=== PATIENT | male | born 1955 | race Caucasian/White ===

== ENCOUNTER 2022-04-27 11:13 | Inpatient (IN) ==
--- NOTE | 2022-04-27 12:23 | Emergency Department Note ---
HPI General Chief complaint: Altered Mental Status Stated complaint: altered LOC, weakness Time Seen by Provider: 04/27/22 12:15 Mode of arrival: wheelchair Limitations: no limitations History of Present Illness HPI Narrative: Narrative: 67 yo M w/ h/o widely metastatic bladder CA who is on comfort care measures presents to the ED w/ inability to urinate. Per his sister who is his medical POA, he has not been able to urinate today and has become increasingly uncomfortable. They did give his usual hydrocodone and toradol, and he additionally had some ativan, however Sx persisted. At that point they realized he had not urinated and became concerned for urinary obstruction and presented here. He arrives w/ a living will stating that he is comfort care measures only and does not want any measures to prolong his life. Family has made efforts to get him in to hospice and our bilingual patient support caseworker has set up a referral but he will not be seen for around one week. Pt is new to the area- he was living in [place] but his friends were unable to care for him, so he came here for his family to care for him in what he and the family understand are his last days. At this point however, the family feel that they are not able to care for him at home properly as they have significant difficulty mobilizing him. Related Data Previous Rx's Medication Instructions Recorded fentanyl 75 mcg/hr transdermal 1 patch TRANSDERMAL Q72H #5 ea 04/24/22 patch hydrocodone 7.5 mg-acetaminophen 15 ml PO Q6H PRN #118 ml 04/24/22 325 mg/15 mL oral solution levothyroxine 75 mcg capsule 75 mcg PO QDAY #30 cap 04/24/22 lorazepam 0.5 mg tablet (Ativan) 0.5 mg PO QHS PRN #10 tab 04/24/22 prochlorperazine maleate 10 mg 10 mg PO Q8H PRN #10 tab 04/24/22 tablet ketorolac 10 mg tablet 10 mg PO TID PRN 5 Days #15 tab 04/25/22 Allergies Allergy/AdvReac Type Severity Reaction Status Date / Time No Known Drug Allergies Allergy Verified 04/27/22 11:18 Review of Systems ROS ROS Narrative: Narrative: All systems ED: reviewed and negative except as stated. PFSH Narrative Patient History Narrative: Narrative: Medical/Surgical/Family History All Active Problems (Updated 04/27/22 @ 13:26 by Cholo Loaiza MD) Weakness (Acute) Pain of metastatic malignancy (Acute) Acute urinary retention (Acute) Hypotension (Acute) Social History Smoking Status: Former smoker Exam Narrative Narrative: Narrative: General Limitations: no limitations General appearance: Present other (drowsy but occasionally in pain, cachectic) Head Head: Present atraumatic and normocephalic Eye Eye: Present normal appearance ENT ENT: Present normal oropharynx and mucous membranes dry Chest Chest: Present normal inspection and symmetric chest wall rise Respiratory Respiratory: Present normal lung sounds bilaterally; Absent respiratory distress Cardiovascular Cardiovascular: Present regular rate, normal rhythm, +S1, +S2 and other (2+ B/L radial pulses); Absent systolic murmur or diastolic murmur Adbominal Abdominal: Present soft, tenderness (suprapubic), normal bowel sounds and other (distended bladder on bedside US); Absent distention, guarding, rebound or rigidity Extremities Extremities: Absent pedal edema Neurological Neurological: Present alert Psychiatric Psychiatric: Present normal affect Skin Skin: Present warm (WNL) and dry Course Vital Signs Vital signs: Vital Signs Temperature 96.5 F L 04/27/22 11:14 Pulse Rate 115 H 04/27/22 11:14 Respiratory Rate 16 04/27/22 11:14 Blood Pressure 64/48 04/27/22 11:14 Pulse Oximetry (%) 93 04/27/22 11:14 Temperature 96.5 F L 04/27/22 11:14 Pulse Rate 117 H 04/27/22 11:27 Respiratory Rate 8 L 04/27/22 12:50 Blood Pressure 61/47 04/27/22 12:49 Pulse Oximetry (%) 95 04/27/22 11:27 [facility] MDM Narrative Medical decision making narrative: 67 yo M w/ h/o widely metastatic bladder CA who is on comfort care measures presents to the ED w/ inability to urinate and is found to be significantly hypotensive. DDX - hypovolemic shock, obstructive shock, septic shock, metabolic/electrolyte d/o, dehydration, neoplastic process Pt presented awake but drowsy, w/ tachycardia and hypotension. I d/w his sister at bedside and reviewed his living will. In accordance w/ his wishes and w/ sister in agreement w/ did not proceed w/ any interventions to address his vital sign instability, or investigations to determine the etiology. The family understood that with his current vitals he may not survive the night. I did find that he had clear evidence of bladder outlet obstruction, and this was relieved w/ placement of a coudet catheter. He was then much more comfortable and had good output. He was seen by case management in the ED. Both the family, case management, and myself all felt that admission for comfort care would be ideal at this time as his needs are more than family can provide. The pt was then accepted by the hospitalist for ongoing care. Discharge Plan Patient/Caregiver Discharge Instructions Pt seen by LABORATORY COORDINATOR/PA only: No Clinical Impression: Acute urinary retention, Pain of metastatic malignancy, Hypotension Patient Disposition: Xfer As Inpt ([facility]) Condition: Serious Follow up with: Thanh Hill PA-C [Primary Care Provider] - Prescriptions: No Action fentanyl 75 mcg/hr patch 72 hour 1 patch transdermal Q72H Qty: 5 0RF hydrocodone-acetaminophen 7.5-325 mg/15 mL solution 15 ml PO Q6H PRN (Reason: pain) Qty: 118 0RF levothyroxine 75 mcg capsule 75 mcg PO QDAY Qty: 30 0RF prochlorperazine maleate 10 mg tablet 10 mg PO Q8H PRN (Reason: nausea and vomiting) Qty: 10 0RF lorazepam [Ativan] 0.5 mg tablet 0.5 mg PO QHS PRN (Reason: sleep) Qty: 10 0RF ketorolac 10 mg tablet 10 mg PO TID PRN (Reason: pain) 5 Days Qty: 15 0RF
[2022-04-27] MEDS ORDERED: PROCHLORPERAZINE 10 MG/2 ML VIAL IV PRN (13:08)
[2022-04-27] MEDS ORDERED: PROMETHAZINE 25 MG/ML VIAL IV PRN (13:08)
[2022-04-27] MEDS ORDERED: diphenhydrAMINE 50 MG/ML VIAL IV PRN (13:08)
[2022-04-27] MEDS ORDERED: ONDANSETRON 4 MG/2 ML VIAL IV PRN (13:08)
[2022-04-27] MEDS ORDERED: HYDROmorphone 1 MG/ML SYRINGE IV PRN (13:08)
[2022-04-27] MEDS ORDERED: morphine 20 MG/ML ORAL.CONC SL PRN (13:08)
[2022-04-27] MEDS ORDERED: ZOLPIDEM 5 MG TABLET PO PRN (13:08)
[2022-04-27] MEDS ORDERED: HYDROcodone/APAP 5/325MG TABLET PO PRN (13:08)
[2022-04-27] MEDS ORDERED: morphine 4 MG/ML VIAL IV PRN (13:08)
[2022-04-27] MEDS ORDERED: traZODone HCL 50 MG TABLET PO PRN (13:08)
[2022-04-27] MEDS ORDERED: ACETAMINOPHEN 325 MG TABLET PO PRN (13:08)
[2022-04-27] MEDS ORDERED: ALBUTEROL SULFATE 2.5 MG/3 ML NEBULIZER NEB PRN (13:08)
[2022-04-27] MEDS ORDERED: 0.9 % SODIUM CHLORIDE 10 ML SYRINGE IV SCH (14:00)
[2022-04-27] MEDS: LORazepam 2 MG/ML VIAL IV PRN ×2 (16:05→19:59)
[2022-04-27] MEDS ORDERED: DOCUSATE SODIUM 100 MG CAPSULE PO SCH (21:00)
[2022-04-27] MEDS ORDERED: QUEtiapine 25 MG TABLET PO PRN (21:00)
[2022-04-27] MEDS ORDERED: SENNOSIDES 1 TABLET PO SCH (21:00)
--- NOTE | 2022-04-27 23:00 | Internal Med History&Physical ---
HPI History of Present Illness Patient information: Note initiated : 04/27/22 at 10:59 pm Service Date, if different from initiated Date: [] Patient: Jerome Hurtado 67 y/o M admitted on 04/27/22 for altered LOC, weakness. Chief Complaint: [] History of present illness: Mr. Hurtado is a 67 year old M 68-year-old gentleman with a metastatic bladder cancer who has been on comfort measures brought to the ER due to urinary retention and respiratory distress. Patient's sister who is a medical power of christian education director reported patient unable to void and having pain and respiratory distress appears to be uncomfortable patient was given hydrocodone without much improvement also given some lorazepam. Patient recently moved here from [place] he has a diagnosis of metastatic cancer with mets into the lung and lymph nodes, unable to care for him in [place] and moved with his sister recently Patient was evaluated in the ER unable to place a Colbert catheter which relieved his discomfort. Discussed with the patient's sister and [id number] at bed side and they want comfort measures does not want any IV fluids antibiotics or any other interventions other than pain control and anxiety medications Review of systems Unable to obtain Reported urinary retention and respiratory distress Physical exam Appears to be in mild distress Severe protein calorie malnutrition Neck: full ROM Respiratory: Bilateral crackles and wheezing Cardiovascular: Mild tachycardia regular systolic murmur GI/Abdominal: Catheter in place soft nondistended Extremities: full range of motion, nontender. Neurological: Moving bilateral extremities no focal deficit Psychiatric: Restless and agitated no hallucination Skin: warm, multiple bruises PFSH PFSH All Active Problems (Updated 04/27/22 @ 13:26 by Cholo Loaiza MD) Weakness (Acute) Pain of metastatic malignancy (Acute) Acute urinary retention (Acute) Hypotension (Acute) MEDS/ALLERGIES Home Medications and Allergies Home Medications Medication Instructions Recorded Confirmed Type fentanyl 75 mcg/hr transdermal 1 patch TRANSDERMAL Q72H #5 ea 04/24/22 04/27/22 Rx patch hydrocodone 7.5 mg-acetaminophen 15 ml PO Q6H PRN #118 ml 04/24/22 04/27/22 Rx 325 mg/15 mL oral solution levothyroxine 75 mcg capsule 75 mcg PO QDAY #30 cap 04/24/22 04/27/22 Rx lorazepam 0.5 mg tablet (Ativan) 0.5 mg PO QHS PRN #10 tab 04/24/22 04/27/22 Rx prochlorperazine maleate 10 mg 10 mg PO Q8H PRN #10 tab 04/24/22 04/27/22 Rx tablet ketorolac 10 mg tablet 10 mg PO TID PRN 5 Days #15 tab 04/25/22 04/27/22 Rx Allergies Allergy/AdvReac Type Severity Reaction Status Date / Time No Known Drug Allergies Allergy Verified 04/27/22 11:18 EXAM Constitutional Vitals: Temp Pulse Resp BP Pulse Ox 97.5 F 117 H 20 127/78 97 04/27/22 14:00 04/27/22 11:27 04/27/22 14:00 04/27/22 14:00 04/27/22 14:00 A/P Narrative Plan of Treatment: Goal of care - comfort care measures Active medical problems Urinary retention Acute hypoxemic respiratory failure Metastatic bladder cancer Metastatic lung tumor and obstruction and hypoxia Plan Discussed with the patient's sister and [id number] at bedside and they want comfort measures only does not want any other active interventions does not want IV fluid resuscitation But they are okay accessing the port or getting an IV access for pain management and anxiety management We will use sublingual morphine and follow the protocol Will use lorazepam for anxiety Patient is very eminent and discussed with the family Case management involvement for hospice consult if the patient end up staying overnight Time Spent With Patient Time: Total time spent is greater than 50% in coordination of care (as documented) at patient's floor/unit and/or counseling patient: QUALITY VTE Deep Vein Thrombosis/Pulmonary Embolism Present on Admission: No
--- NOTE | 2022-04-28 10:52 | Death Note ---
Discharge Sum: Prov Provider Patient information: Note initiated : 04/28/22 at 10:47 am Service Date, if different from initiated Date: [] Patient: Jerome Hurtado 67 y/o M admitted on 04/27/22 for altered LOC, weakness. Chief Complaint: [] Primary care physician: Thanh Hill PA-C Admitting clinician: Maira Meza Consults: 04/27/22 Consult to Physician [CONS] Stat Comment: Consulting Provider: Maira Meza Reason For Exam: Physician to Consult Discharge Sum: Summary Date and Time Date of admission: 04/27/22 13:55 Date of : 04/27/22 Time of : 23:15 Summary Details: Cause of Metastatic malignant neoplasm of the bladder Acute hypoxemic respiratory failure Metastatic lung tumor causing obstruction and hypoxia 68-year-old gentleman with a metastatic bladder cancer who has been on comfort measures brought to the ER due to urinary retention and respiratory distress. Patient's sister who is a medical power of supervisor [employer] reported patient unable to void and having pain and respiratory distress appears to be uncomfortable patient was given hydrocodone without much improvement also given some lorazepam. Patient recently moved here from [place] he has a diagnosis of metastatic cancer with mets into the lung and lymph nodes, unable to care for him in [place] and moved with his sister recently Patient was evaluated in the ER unable to place a Colbert catheter which relieved his discomfort. Discussed with the patient's sister and [id number] at bedside and they want comfort measures Patient is admitted to the medical floor and started him on comfort measures used morphine sublingual for comfort patient's pain is controlled appears to be comfortable and at 2315 patient peacefully Additional Data Attending physician: Maira Meza MD Was code activated?: No Autopsy requested?: No Hospice patient?: Yes
== END 2022-04-28 01:00 | disposition expired | DRG 951 ==
LOC: ED 11:13 → MEDSUR 13:55
PROVIDERS: ADMIT Internal Medicine; ATTEND Internal Medicine